=== PATIENT | male | born 1995 | race Caucasian/White ===

== ENCOUNTER 2017-03-24 22:32 | Emergency (ER) | payer MEDICAID, OTHER ==
[~2017-03-24] VITALS: Ht 177.8 cm; Wt 86.4 kg
[~2017-03-24 22:32] MED LIST: HALO5TAB23 PO; RISP3TAB44 PO; TRAZ-144 PO
[2017-03-24 22:34] VITALS: BP 133/87
[2017-03-24] MEDS ORDERED: OLAN7.5T2 PO (22:37)
[2017-03-24] MEDS ORDERED: ATOR10TA84 PO (22:37)
[2017-03-24] MEDS ORDERED: IBUPROFEN 600 MG TABLET PO ONE (23:45)
[2017-03-25] MEDS ORDERED: LIDOCAINE HCL BUFFERED 1% 20 ML VIAL INJ ONE
[2017-03-25] MEDS ORDERED: POVIDONE-IODINE 10% 15 ML SOLUTION UD ONE (00:12)
[2017-03-25] MEDS ORDERED: BACITRACIN 0.9 GM PACKET OINTMENT TP ONE (00:30)
[2017-03-25] MEDS ORDERED: NEOMYCIN/BACITRACIN/POLYMYXIN B OINTMENT PACKET TP ONE (00:41)
== END 2017-03-25 01:25 | disposition home or self-care (01) ==
LOC: EMS 22:34
DX: S51.811A Laceration without foreign body of right forearm, initial encounter (principal); W25.XXXA Contact with sharp glass, initial encounter; Y93.89 Activity, other specified; Y92.89 Other specified places as the place of occurrence of the external cause; Y99.8 Other external cause status
CPT/HCPCS: 12002; 73090; 99284; J3490